=== PATIENT | male | born 1995 | race African-American/Black ===

== ENCOUNTER 2020-01-17 06:03 | Inpatient (IN) | payer MEDICAID ==
[~2020-01-17] VITALS: Ht 182.9 cm; Wt 95.3 kg
[2020-01-17] MEDS ORDERED: FAMOTIDINE 20MG/2ML VIAL IV STA (06:56)
[2020-01-17] MEDS ORDERED: MORPHINE SULFATE 4 MG/ML CPJ (NOT FOR IM USE) IV STA (06:56)
[2020-01-17] MEDS ORDERED: ONDANSETRON HCL 4MG/2ML INJ IV STA (06:56)
[2020-01-17] MEDS ORDERED: SODIUM CHLORIDE 0.9% 1,000 ML IV ONE (06:56)
[2020-01-17 07:17] LABS: BASOPHILS % 0.4 % (0.0-2.0); EOSINOPHILS % 2.4 % (0.0-5.0); HEMATOCRIT. 44.7 % (42.0-52.0); HEMOGLOBIN. 15.7 g/dL (14.0-18.0); LYMPHOCYTES % 30.9 % (20.0-50.0); MEAN CORPUSCULAR HEMOGLOBIN 30.3 pg (28.0-32.0); MEAN CORPUSCULAR VOLUME 86.5 fL (80.0-94.0); MEAN PLATELET VOLUME 8.6 fl (7.4-10.4); MONOCYTES % 9.8 % (2.0-8.0); NEUTROPHILS % 56.5 % (40.0-76.0); PLATELET 224 x1000/uL (130-400); RED BLOOD CELL COUNT 5.17 mill/uL (4.7-6.1); RED CELL DISTRIBUTION WIDTH 13.7 % (11.6-14.6)
[2020-01-17 07:24] LABS: CHLORIDE 104 mEq/L (98-107)
[2020-01-17 07:27] LABS: PROTHROMBIN TIME 10.9 sec (9.6-11.0)
[2020-01-17 09:13] LABS: CLARITY URINE CLEAR (CLEAR); COLOR URINE YELLOW (YELLOW); KETONES URINE NEGATIVE (NEGATIVE); LEUKOCYTE ESTERASE URINE NEGATIVE (NEGATIVE); NITRITE URINE NEGATIVE (NEGATIVE); OCCULT BLOOD URINE NEGATIVE (NEGATIVE); PH URINE 5.5 (4.5-8.0); PROTEIN URINE NEGATIVE (NEGATIVE); SPECIFIC GRAVITY URINE 1.021 (1.005-1.030); UROBILINOGEN URINE 0.2 E.U./dL (0.2-1.0)
[2020-01-17] MEDS ORDERED: POTASSIUM CHLORIDE 20MEQ TABLET SR PO NR (09:15)
[2020-01-17] MEDS ORDERED: ACETAMINOPHEN 325MG TABLET PO PRN (09:15)
[2020-01-17] MEDS ORDERED: ONDANSETRON HCL 4MG/2ML INJ IV PRN (09:15)
[2020-01-17] MEDS: PANTOPRAZOLE SODIUM 40 MG/VIAL IV SCH (09:28)
[2020-01-17] MEDS: DEXT 5%/0.45% NACL 1000ML 1,000 ML IV SCH ×2 (09:43→16:56)
[2020-01-17 14:00] VITALS: BP 141/91
[2020-01-17] MEDS: MORPHINE SULFATE 2 MG/ML CPJ (NOT FOR IM USE) IV PRN ×3 (14:03→23:10)
[2020-01-17 14:21] VITALS: BP 147/91
[2020-01-17 16:00] VITALS: BP 149/81
[2020-01-17 20:00] VITALS: BP 145/78
[2020-01-18] VITALS: BP 141/69
[2020-01-18] MEDS: DEXT 5%/0.45% NACL 1000ML 1,000 ML IV SCH ×5 (02:27→21:15)
[2020-01-18 04:00] VITALS: BP 143/85
[2020-01-18] MEDS: MORPHINE SULFATE 2 MG/ML CPJ (NOT FOR IM USE) IV PRN ×3 (05:25→23:22)
[2020-01-18 06:28] LABS: BASOPHILS % 0.3 % (0.0-2.0); EOSINOPHILS % 2.9 % (0.0-5.0); HEMATOCRIT. 43.4 % (42.0-52.0); HEMOGLOBIN. 15.2 g/dL (14.0-18.0); LYMPHOCYTES % 13.5 % (20.0-50.0); MEAN CORPUSCULAR HEMOGLOBIN 30.3 pg (28.0-32.0); MEAN CORPUSCULAR VOLUME 86.5 fL (80.0-94.0); MEAN PLATELET VOLUME 8.4 fl (7.4-10.4); MONOCYTES % 11.1 % (2.0-8.0); NEUTROPHILS % 72.2 % (40.0-76.0); PLATELET 197 x1000/uL (130-400); RED BLOOD CELL COUNT 5.02 mill/uL (4.7-6.1); RED CELL DISTRIBUTION WIDTH 13.9 % (11.6-14.6)
[2020-01-18 06:56] LABS: CHLORIDE 104 mEq/L (98-107)
[2020-01-18 08:00] VITALS: BP 136/79
[2020-01-18] MEDS: PANTOPRAZOLE SODIUM 40 MG/VIAL IV SCH (11:11)
[2020-01-18 12:00] VITALS: BP 138/83
[2020-01-18 16:00] VITALS: BP 140/82
[2020-01-18 20:00] VITALS: BP 147/98
[2020-01-19] VITALS: BP 119/67
[2020-01-19 04:00] VITALS: BP 115/52
[2020-01-19 07:15] LABS: CHLORIDE 102 mEq/L (98-107)
[2020-01-19] MEDS: DEXT 5%/0.45% NACL 1000ML 1,000 ML IV SCH (07:15)
[2020-01-19 08:00] VITALS: BP 128/76
[2020-01-19] MEDS: PANTOPRAZOLE SODIUM 40 MG/VIAL IV SCH (09:43)
[2020-01-19 12:00] VITALS: BP 125/59
[2020-01-19] MEDS ORDERED: POTASSIUM CHLORIDE 20MEQ TABLET SR PO NR (13:30)
[2020-01-19 16:00] VITALS: BP 121/78
[2020-01-19 20:00] VITALS: BP 136/77
[2020-01-20] VITALS: BP 114/72
[2020-01-20] MEDS: DEXT 5%/0.45% NACL 1000ML 1,000 ML IV SCH (03:33)
[2020-01-20 04:00] VITALS: BP 128/83
[2020-01-20 08:00] VITALS: BP 104/46
[2020-01-20] MEDS: PANTOPRAZOLE SODIUM 40 MG/VIAL IV SCH (08:35)
[2020-01-20 12:15] VITALS: BP 125/71
[2020-01-20 12:39] VITALS: BP 125/71
== END 2020-01-20 12:54 | disposition home or self-care (01) | DRG 282 ==
LOC: ER 06:03 → 6EST 08:59 → EDBEDREQTM 09:01 → EDBEDREQ 09:01 → ENRESERV 13:16
PROVIDERS: ADMIT Internal Medicine; ATTEND Internal Medicine
DX: K85.90 Acute pancreatitis without necrosis or infection, unspecified (principal); E87.6 Hypokalemia; F10.10 Alcohol abuse, uncomplicated; I10 Essential (primary) hypertension; F17.210 Nicotine dependence, cigarettes, uncomplicated; Y90.9 Presence of alcohol in blood, level not specified; Z71.6 Tobacco abuse counseling; Z71.41 Alcohol abuse counseling and surveillance of alcoholic
CPT/HCPCS: 36415; 80048; 80053; 81003; 85025; 99285; C9113; J2270; J2405; J3490; J7030